=== PATIENT | male | born 1960 | race Caucasian/White ===

== ENCOUNTER 2018-06-04 16:02 | Inpatient (IN) | payer MEDICAID ==
[2018-06-04] MEDS ORDERED: ACETAMINOPHEN 325 MG TAB PO PRN (18:54)
[2018-06-04] MEDS ORDERED: HYDROmorphONE/DILAUDID 1 MG/ML INJ IVP PRN (18:54)
[2018-06-04] MEDS ORDERED: oxyCODONE IR 5 MG TAB PO PRN (18:54)
[2018-06-04] MEDS ORDERED: PROMETHAZINE HCL 25 MG/ML INJ IVP PRN (18:54)
[2018-06-04] MEDS ORDERED: ONDANSETRON 4 MG/2 ML VIAL IVP PRN (18:54)
[2018-06-04] MEDS ORDERED: ONDANSETRON DISINTEGRATING 4 MG TAB PO PRN (18:54)
--- NOTE | 2018-06-04 20:41 | GHP ---
DATE OF ADMISSION: 06/04/2018 CHIEF COMPLAINT: Swelling of eyes. HISTORY: This is a 57-year-old man who presents as a direct admission from his oncologist's office w ith complaints of 1-1/2 years of significant swelling of his eyes. The patient notes that he initial ly thought there was something in his eye and had seen a doctor for that as they were burning, but th is did not improve. Over the last year and a half, he has had ongoing worsening swelling of the eyes to the point where he is no longer able to see at all out of the right eye just simply due to the sw elling pressing his eye downward to where he needs to lean his head back and pull his lid up in order to access the pupil. He states he attempted to be seen by different doctors over the years, but thi s was unable to be truly successful due to issues with insurance. He was finally able to undergo a b iopsy, at which time he was diagnosed with CLL. He is sent over here from Dayday Saha at [facility] for planned initiation of chemotherapy in the morning. The patient also notes a h oarse voice that has been present for the last several months. He denies any issues with trouble swa llowing or breathing. He has not had any issues with drooling. PAST MEDICAL HISTORY: Includes peritonitis, status post ruptured appendix. PAST SURGICAL HISTORY: Includes appendectomy, colostomy with colostomy takedown. FAMILY HISTORY: Father had some sort of immunodeficiency syndrome, which he had frequent infections as a result of and at age 70. SOCIAL HISTORY: Patient is a marijuana user. He denies having history of tobacco use ever. He does have a prior heavy alcohol use history, but is currently essentially sober. He lives independently with his 27-year-old son. REVIEW OF SYSTEMS: 10-point review of systems obtained, negative except as per HPI. HOME MEDICATIONS: Include ibuprofen. ALLERGIES: No known drug allergies. PHYSICAL EXAM: VITAL SIGNS: BP 119/95, heart rate 99, respiratory rate 16, O2 sat 94% on room air, temperature is 36.6. GENERAL APPEARANCE: This is a well-developed, well-nourished man. He is awake and alert. He is in no acute distress. EYES: Significant bilateral proptosis. eye is essentially closed, with pupil located very inferiorly. He is able to retract his lid and see out of that eye, and when he does so, he states his vision is normal, so that is on the . The __ pupil is visible; vision is intact, but again, with significant proptosis. HEENT: Orophary nx is notable for a lesion in the posterior palatal region. There is some fullness appreciated in th e cervical region without distinct masses appreciated. There is no stridor. CARDIOVASCULAR: Regula r rate and rhythm, no MRG. PULMONARY: CTA bilaterally. Normal work of breathing. ABDOMEN: Soft, nontender, nondistended. EXTREMITIES: No clubbing, cyanosis, or edema. SKIN: Warm, dry, well perf used. NEURO/PSYCH: Oriented and appropriate. CLINICAL DATA: Labs reviewed. CBC is completely normal. Chemistry is remarkable only for a BUN of 25, TSH of 6.1. Hep B and C antibodies are negative. HIV is pending. ASSESSMENT AND PLAN: This is a 57-year-old man with newly diagnosed ocular adnexal chronic lymphocyt ic leukemia, here for initiation of chemotherapy. 1. Ocular adnexal chronic lymphocytic leukemia. The patient is being admitted for planned chemother apy with high-dose methylprednisolone as well as rituximab with concerns that deferring treatment may lead to loss of vision and/or airway. At this time, his airway does seem to be protected. His visi on does certainly seem to be imminently in danger. Will further stage with CT chest, abdomen, pelvis . We will provide intravenous fluids overnight in anticipation of initiation of chemotherapy in the morning. 2. Elevated BUN. Patient may be slightly dry. Again, intravenous fluids overnight. 3. Disposition. Inpatient status. Suspect the patient will require greater than a 48-hour stay for administration of high-risk chemotherapy agents, monitoring for tumor lysis syndrome. Patient is new to my care. Old records reviewed, summarized as per HPI and past medical history. Ca re plan reviewed at length with Dr. Saha of [facility]. /[id number]/MODL
[2018-06-04] MEDS: NS 1,000 ML IV SCH (20:50)
[2018-06-04] MEDS ORDERED: IOPAMIDOL (ISOVUE-300) 100 ML BTL ONE (22:15)
[2018-06-04] MEDS: LORazepam 0.5 MG TAB PO PRN (22:54)
[2018-06-05 04:26] LABS: PLATELET COUNT 189 10^3/uL (150-400)
--- NOTE | 2018-06-05 10:24 | PDMN ---
Medical Necessity Medical necessity: [facility] Medical Oncology GR57 y/o w/ ocular adnexal CLL , admit to IP for planned chemo w/ high dose methylprednisolone and rituxin w/ concerns deferring treatment may lead to loss of vision and/or airway. Imminent danger to vision currently. IV fluids for elevated BUN. Inpt status as suspect pt will require >48hr stay for admin of high risk chemo agents and monitoring for tumor lysis syndrome.
--- NOTE | 2018-06-05 14:19 | HOSPPROG ---
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: onc to see today to initiate inpt induction chemotherapy orbital masses: per pt, visual acuity intact is at risk for vision loss it seems anxiety: prn ativan proph: start LMWH dispo: inpt Subjective: case d/w dr dias Objective: Vital Signs Temp Pulse Resp BP Pulse Ox 36.7 C 105 H 18 123/97 H 94 06/05/18 11:38 06/05/18 11:38 06/05/18 11:38 06/05/18 11:38 06/05/18 11:38 Laboratory Results 06/05/18 04:05 06/05/18 04:05 06/04/18 06/05/18 06/06/18 05:59 05:59 05:59 Intake Total 889 Balance 889 - Physical Exam Constitutional: no apparent distress, appears nourished Eyes: anicteric sclera, other (remarkably large orbital masses w significant proptosis. L >R. visual acuity intact) Ears, Nose, Mouth, Throat: moist mucous membranes, hearing normal Cardiovascular: regular rate and rhythym, no murmur, rub, or gallop Respiratory: no respiratory distress, no rales or rhonchi Gastrointestinal: normoactive bowel sounds, soft, non-tender abdomen Genitourinary: no bladder fullness, No pena in urethra Skin: warm, normal color Musculoskeletal: full muscle strength Neurologic: AAOx3 Psychiatric: interacting appropriately
--- NOTE | 2018-06-05 16:31 | ASMTCMCOM ---
CM Note CM Note Notes: Pt's chart reviewed for d/c planning. Pt is a 57 y/o male who presents as a direct admit from his oncologist's office with a diagnosis of CLL. He will begin chemotherapy in the morning. He had experienced increased swelling of his eyes for 1 1/2 years, prior to diagnosis. Pt is single. He is employed by [employer]. CM needs unknown at this time; CM will follow. D/C Plan: TBD Date Signed: 06/05/2018 04:30 PM Electronically Signed By:Miriam Barrios
[2018-06-05] MEDS: SULFAMETHOX/TMP 400/80 MG 1 TAB PO SCH (17:38)
--- NOTE | 2018-06-05 19:12 | GHP ---
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 HISTORY OF PRESENT ILLNESS: The patient is a very pleasant 57-year-old male who was first seen in [facility] office on April [address] Saha. He reported a history of progressive slow periorbital swelling, w hich he thought was due to some type of irritation from the soap. He was uninsured and therefore was delayed in seeking medical followup. He was seen by automotive dismantler, Dr. Toure in early April with a visual acuity of 20/30 in each eye, but had markedly infiltrative orbital masses bilaterally, left greater than right. Biopsy was performed on the right orbital mass on May 08 with pathology rep resenting a B-cell lymphoma with immunophenotype showing mature B-cell, CD 5 positive, CD 20 positive , cyclin D1 negative. This was felt to be consistent with chronic lymphocytic leukemia/small lymphoc ytic lymphoma. Alok denies any fevers, chills, or sweats. He feels his weight is stable. He feels his vision is martha sonable, but he just cannot open his eyelids due to the masses. He also has noted some voice changes . He is admitted for initiation of therapy with rituximab and high-dose methylprednisolone. PAST MEDICAL HISTORY: Unremarkable. PAST SURGICAL HISTORY: Appendectomy with ruptured appy, abdominal sepsis, temporary colostomy and re anastomosis. FAMILY HISTORY: Noncontributory. SOCIAL HISTORY: He is . He works as a environmental programs specialist. He has used alcohol heavily in the past and h e smokes marijuana regularly. REVIEW OF SYSTEMS: 10-point review of systems is negative. PHYSICAL EXAM: GENERAL: He is a chronically ill-appearing male with marked deformity in both orbits . HEENT: Pupils and sclerae are barely visible due to swelling of the eyelids and periorbital regio n. LUNGS: Clear to auscultation. HEART: Regular rate. ABDOMEN: Soft, nontender. He has bilater al shotty cervical adenopathy. LABORATORY DATA: Normal CBC with normal differential, no lymphocytosis, 3+ atypical lymphocytes are noted on the peripheral smear. Beta 2 microglobulin is elevated at 3.6. Metabolic panel is unremark able with LDH of 591 and uric acid of 6.2. IMPRESSION: This is a 57-year-old male with a slowly progressive infiltrative small lymphocytic lymp mahendra process involving primarily the periorbital region. The CT scans of the chest and abdomen show multiple pulmonary nodules with subpleural pulmonary nodules, the largest measuring 19 mm. There is soft tissue nodular infiltration in the subcutaneous tissue over the shoulders bilaterally. Abdomina l pelvic CT shows a 3 cm nodular nonspecific soft tissue mass in the mesentery just below the anterio r abdominal wall with nonspecific nodular soft tissue densities in the subcutaneous fat bilaterally a nd multiple prominent bilateral inguinal nodes with mild splenomegaly and a 3.2 cm nonspecific hypode nse lesion in the right lobe of the liver. The bulk of his disease appears to be in the periorbital region and we will get a CT of that to have as a baseline. This is an unusual presentation of small lymphocytic lymphoma with apparent predilection for soft tis nora infiltration. I suspect the pulmonary nodules and pleural nodules and soft tissue infiltration a ll represent lymphoid infiltrate. If so, we would expect to see a fairly rapid response to the thera py. If some of these areas persist despite a significant response elsewhere, it would be reasonable to re-evaluate for some other underlying process. PLAN: 1. We will get a head CT with IV contrast to have as a baseline. 2. Anticipate starting rituximab and high-dose methylprednisolone tomorrow with rituximab 375 mg/m2 and methylprednisolone 1 g/m2 days 1 through 3. 3. I reviewed potential side effects of the therapy with him and his son. 4. Prophylactic acyclovir and Bactrim have been started. We will also start on allopurinol. Cierra gould, I suspect, given the typical indolent nature of this disease, a significant tumor lysis would be u nlikely. We will continue to follow with you. /[id number]/MODL
[2018-06-05] MEDS ORDERED: GADOBUTROL 10 ML VIAL IVP ONE (20:27)
[2018-06-05] MEDS: ACYCLOVIR 400 MG TAB PO SCH (21:02)
[2018-06-05] MEDS: NS 1,000 ML IV SCH (21:02)
[2018-06-06 05:54] LABS: PLATELET COUNT 189 10^3/uL (150-400)
[2018-06-06] MEDS ORDERED: NS 1,000 ML IV PRN ×2 (09:36→11:27)
[2018-06-06] MEDS: ACYCLOVIR 400 MG TAB PO SCH ×2 (09:49→20:01)
[2018-06-06] MEDS: SULFAMETHOX/TMP 400/80 MG 1 TAB PO SCH (09:49)
[2018-06-06] MEDS: ALLOPURINOL 300 MG TAB PO SCH (09:49)
[2018-06-06] MEDS ORDERED: NS 500 ML IV PRN (11:27)
[2018-06-06] MEDS ORDERED: HYDROCORTISONE 100 MG/2 ML VIAL IVP PRN (11:27)
[2018-06-06] MEDS ORDERED: ACETAMINOPHEN 325 MG TAB PO PRN (11:27)
[2018-06-06] MEDS ORDERED: DEXAMETHASONE 10 MG/ML VIAL IVP PRN (11:27)
[2018-06-06] MEDS ORDERED: MEPERIDINE 25 MG/ML SYR IVP PRN (11:27)
[2018-06-06] MEDS ORDERED: EPINEPHrine 1 MG/ML INJ IM PRN (11:27)
[2018-06-06] MEDS ORDERED: ACETAMINOPHEN 325 MG TAB PO ONE ×2 (11:30)
[2018-06-06] MEDS ORDERED: FAMOTIDINE 20 MG/NACL 50 ML IV SCH (11:30)
[2018-06-06] MEDS ORDERED: ACETAMINOPHEN 325 MG TAB PO SCH (11:30)
[2018-06-06] MEDS ORDERED: diphenhydrAMINE 25 MG CAP PO ONE ×2 (11:30)
[2018-06-06] MEDS: FAMOTIDINE 20 MG/NACL 50 ML IV SCH (11:44)
[2018-06-06] MEDS: methylPREDNISolone SOD SUCC 2 GM in D5W 100 ML IV SCH (12:20)
[2018-06-06] MEDS ORDERED: NS IV ONE (13:30)
[2018-06-06] MEDS ORDERED: RITUXIMAB IV ONE (13:30)
--- NOTE | 2018-06-06 13:51 | HOSPPROG ---
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: - Seen by oncology today who plan to initiate inpt induction chemotherapy today (Rituximab and high-dose Methylprednisolone) - Will monitor for TLS with serial monitoring of electrolytes, uric acid/LDH - Will continue IVF and allopurinol - Brain MRI performed yesterdays showed extensive abnormal enhancing soft tissue in orbits, L>R, with intraconal extension and proptosis - Continue ppx with Acyclovir and Bactrim Orbital masses: per pt, visual acuity intact - At risk for vision loss, treatment of CLL as above anxiety: prn ativan proph: LMWH dispo: Pending clinical course Subjective: Patient reports no complaints this AM. Objective: Vital Signs Temp Pulse Resp BP Pulse Ox 36.6 C 95 16 115/75 92 06/06/18 11:38 06/06/18 11:38 06/06/18 11:38 06/06/18 11:38 06/06/18 11:38 Laboratory Results 06/06/18 05:35 06/06/18 05:35 06/05/18 06/06/18 06/07/18 05:59 05:59 05:59 Intake Total 889 1825 800 Balance 889 1825 800 - Physical Exam Constitutional: no apparent distress Eyes: other (Diffuse enlargement with proptosis b/l) Ears, Nose, Mouth, Throat: moist mucous membranes Cardiovascular: regular rate and rhythym Respiratory: no respiratory distress Gastrointestinal: soft, non-tender abdomen Genitourinary: No pena in urethra Skin: warm Musculoskeletal: full muscle strength Neurologic: AAOx3 Psychiatric: interacting appropriately ICD10 Worksheet Patient Problems: Problems Problem Status Onset CLL (chronic lymphocytic leukemia) Acute
--- NOTE | 2018-06-06 15:45 | ASMTCMCOM ---
CM Note CM Note Notes: Pt starting chemo today through a peripheral IV. He will not need PICC or port per RN. Pt should have no DC needs. Pt approved for a [facility]. Date Signed: 06/06/2018 03:44 PM Electronically Signed By:Flakita Diana LCSW
--- NOTE | 2018-06-06 17:12 | ASMTCMCOM ---
CM Note CM Note Notes: Met with pt in PM to discuss resources. Pt has been approved for [employer]. Pt is and lives with his son so he is candidate for assistance through [email or web address].Also told pt to meet with SW at [facility] to get applications for grants through various foundations. Pt also might qualify for SSDI or SSI so LM for [employer] to meet with or call pt on Saturday. Date Signed: 06/06/2018 04:53 PM Electronically Signed By:Flakita Diana LCSW
--- NOTE | 2018-06-06 17:28 | SOAPPROG ---
SOAP Progress Note Assessment/Plan: A/P: * SLL with marked orbital involvement: beginning Rituxan/Methylpred today while prognostic studies pending. We reviewed infusion reactions with Rituxan and potential for psychiatric side effects of high-dose steroids. d/w Dr. Jacome. - Rituxan today - Methylpred D1-3 - Ativan prn 06/06/18 17:29 Subjective: S: no new concerns. Met with pharmacy. O: VS reviewed. Gen: NAD. HEENT: significant bilateral proptosis. Lymph: shotty cervical LAD. Lungs: CTA. Laboratory Tests 06/06/18 06/06/18 05:35 05:35 WBC 6.92 Hgb 14.1 Plt Count 189 Sodium 139 Potassium 4.4 Chloride 107 Carbon Dioxide 23 BUN 14 Creatinine 0.7 Glucose 103 H Total Bilirubin 1.4 AST 17 ALT 23 Alkaline Phosphatase 68 Lactate Dehydrogenase 511 Total Protein 6.4 Albumin 3.7 Outpatient hepatitis serologies and HIV neg. CTs and MRI reviewed. Objective: Vital Signs Temp Pulse Resp BP Pulse Ox 36.6 C 94 18 134/91 H 92 06/06/18 16:32 06/06/18 16:32 06/06/18 16:32 06/06/18 16:32 06/06/18 16:32 Laboratory Results 06/06/18 05:35 06/06/18 05:35 06/05/18 06/06/18 06/07/18 05:59 05:59 05:59 Intake Total 889 1825 1500 Output Total 550 Balance 889 1825 950 ICD10 Worksheet Patient Problems: Problems Problem Status Onset CLL (chronic lymphocytic leukemia) Acute
[2018-06-06] MEDS: LORazepam 2 MG/ML INJ IVP PRN (19:05)
[2018-06-06] MEDS: NS 1,000 ML IV SCH (20:05)
[2018-06-07] MEDS: LORazepam 2 MG/ML INJ IVP PRN ×2 (03:10→15:18)
[2018-06-07 04:56] LABS: PLATELET COUNT 213 10^3/uL (150-400)
[2018-06-07] MEDS: SULFAMETHOX/TMP 400/80 MG 1 TAB PO SCH (10:00)
[2018-06-07] MEDS: ALLOPURINOL 300 MG TAB PO SCH (10:00)
[2018-06-07] MEDS: ACYCLOVIR 400 MG TAB PO SCH ×2 (10:01→20:55)
[2018-06-07] MEDS: FAMOTIDINE 20 MG/NACL 50 ML IV SCH (10:02)
--- NOTE | 2018-06-07 10:35 | HOSPPROG ---
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: - Oncology following who started inpt induction chemotherapy on 06/06 (Rituximab and high-dose Methylprednisolone) - Will monitor for TLS with serial monitoring of electrolytes, uric acid/LDH - Will continue allopurinol - Brain MRI from 06/05 showed extensive abnormal enhancing soft tissue in orbits, L>R, with intraconal extension and proptosis - Continue ppx with Acyclovir and Bactrim Orbital masses: per pt, visual acuity intact - At risk for vision loss, treatment of CLL as above anxiety: prn ativan proph: LMWH dispo: Pending clinical course, d/c likely after completed of induction chemo on 06/09 Subjective: Patient reports feeling well this morning. He had some clear sinus drainage overnight. Objective: Vital Signs Temp Pulse Resp BP Pulse Ox 36.2 C 118 H 18 118/88 H 93 06/07/18 08:09 06/07/18 08:09 06/07/18 08:09 06/07/18 08:09 06/07/18 08:09 Laboratory Results 06/07/18 04:43 06/07/18 04:43 06/06/18 06/07/18 06/08/18 05:59 05:59 05:59 Intake Total 1825 2810 Output Total 1999 Balance 1825 810 - Physical Exam Constitutional: no apparent distress Eyes: other (Significant propotosis abd periorbital swelling ) Ears, Nose, Mouth, Throat: moist mucous membranes Cardiovascular: regular rate and rhythym Respiratory: no respiratory distress Gastrointestinal: normoactive bowel sounds Genitourinary: no bladder tenderness Skin: warm Musculoskeletal: no muscle tenderness Neurologic: AAOx3 Psychiatric: interacting appropriately Lymph, Heme, Immunologic: No ecchymoses ICD10 Worksheet Patient Problems: Problems Problem Status Onset CLL (chronic lymphocytic leukemia) Acute
[2018-06-07] MEDS: methylPREDNISolone SOD SUCC 2 GM in D5W 100 ML IV SCH (10:48)
[2018-06-07] MEDS ORDERED: D50W 25 GM/50 ML SYR IVP PRN (11:26)
[2018-06-07] MEDS ORDERED: TEMAZEPAM 15 MG CAP PO PRN (11:27)
[2018-06-07] MEDS: INSULIN LISPRO 100 UNIT/ML SC SCH ×3 (13:44→19:31)
[2018-06-07] MEDS: NS 1,000 ML IV SCH (18:37)
--- NOTE | 2018-06-07 19:24 | SOAPPROG ---
SOAP Progress Note Assessment/Plan: Assessment: Patient is a 57 year old male with stage IV SLL (LAD above and below the diaphragm with extranodal involvement in bilateral orbits) #Stage IVAE SLL Normal lymphocyte count, lymph adenopathy above and below the diaphragm. Bilateral orbital adnexal involvement. He is currently day #2 of HDMP and rituximab Plan: -Continue 3 days of HDMP, 1gm/m2 daily for 3 days -Will continue weekly rituximab as an outpatient -Discharge on 1SS bactrim daily, acyclovir 400mg BID, allopurinol 300mg daily -Would discharge after 3rd dose of HDMP 06/07/18 19:18 06/07/18 19:30 Subjective: Patient reports feeling well. He had trouble sleeping after, HDMP however also has trouble sleeping when not smoking weed. He denies fevers, chills or sweats, his voice difficulties have resolved and his adenopathy is improving. His orbital masses are also getting smaller Objective: Vital Signs Temp Pulse Resp BP Pulse Ox 36.3 C 107 H 16 133/88 H 93 06/07/18 15:12 06/07/18 15:12 06/07/18 15:12 06/07/18 15:12 06/07/18 15:12 Laboratory Results 06/07/18 04:43 06/07/18 04:43 06/06/18 06/07/18 06/08/18 05:59 05:59 05:59 Intake Total 1825 2810 900 Output Total 1999 Balance 1825 810 900 - Time Spent With Patient Time Spent With Patient: 20 minutes Physical Exam - Physical Exam General Appearance: alert, no apparent distress EENT: other (opthalmaplegia, bilateral supraorbital masses (smaller in size), no pharyngeal deviation ) Neck: No lymphadenopathy (R), No lymphadenopathy (L) Respiratory: chest non-tender, lungs clear, normal breath sounds Cardiac/Chest: normal peripheral pulses, regular rate, rhythm Abdomen: normal bowel sounds, non-tender, soft, No hepatomegaly, No splenomegaly Skin: normal color, warm/dry Lymphatic: other (scattered subcentimeter inguinal LNs largest 1.5cm on left, shoddy anterior cervical/axillary) Extremities: No pedal edema Neuro/Psych: No abnormal gait, No depressed affect ICD10 Worksheet Patient Problems: Problems Problem Status Onset CLL (chronic lymphocytic leukemia) Acute
[2018-06-07] MEDS: LORazepam 0.5 MG TAB PO PRN (20:55)
[2018-06-08 05:16] LABS: PLATELET COUNT 202 10^3/uL (150-400)
[2018-06-08 08:00] VITALS: BP 102/68
[2018-06-08] MEDS: INSULIN LISPRO 100 UNIT/ML SC SCH (08:17)
[2018-06-08] MEDS: FAMOTIDINE 20 MG/NACL 50 ML IV SCH (08:33)
[2018-06-08] MEDS: ACYCLOVIR 400 MG TAB PO SCH (08:37)
[2018-06-08] MEDS: ALLOPURINOL 300 MG TAB PO SCH (08:37)
[2018-06-08] MEDS: SULFAMETHOX/TMP 400/80 MG 1 TAB PO SCH (08:37)
[2018-06-08] MEDS: methylPREDNISolone SOD SUCC 2 GM in D5W 100 ML IV SCH (08:56)
--- NOTE | 2018-06-08 10:11 | SOAPPROG ---
SOAP Progress Note Assessment/Plan: Assessment: Patient is a 57 year old male with stage IV SLL (LAD above and below the diaphragm with extranodal involvement in bilateral orbits). No ACDS BLOCK 1 OPERATOR disease #Stage IVAE SLL Normal lymphocyte count, lymph adenopathy above and below the diaphragm. Bilateral orbital adnexal involvement. He is currently day #3/3 of HDMP and rituximab Plan: -Will continue weekly rituximab as an outpatient -Would discharge on 1SS bactrim daily, acyclovir 400mg BID, allopurinol 300mg daily -Okay for discharge today Dayday Saha [phone] Subjective: Patient reports feeling well. He slept well with restoril, he denies any fever chills or drenching night sweats, no new concerning lesions Objective: Vital Signs Temp Pulse Resp BP Pulse Ox 36.7 C 98 16 102/68 94 06/08/18 07:59 06/08/18 07:59 06/08/18 07:59 06/08/18 07:59 06/08/18 07:59 Laboratory Results 06/08/18 04:14 06/08/18 04:14 06/07/18 06/08/18 06/09/18 05:59 05:59 05:59 Intake Total 2810 2159 Output Total 2000 Balance 810 2159 Physical Exam - Physical Exam General Appearance: alert, no apparent distress EENT: other (two small nodules ~1cm on left side of waldeneyer's ring, verrucous papule on roof of hard palate (left), exopthalmos, bilateral supraorbital masses continue to decrease in size), No scleral icterus (R), No scleral icterus (L), No pale conjunctiva (R), No pale conjunctiva (L) Neck: lymphadenopathy (L) (1 cm left posterior cervical node ) Respiratory: lungs clear, normal breath sounds, No crackles, No rales Cardiac/Chest: normal peripheral pulses, regular rate, rhythm, No edema, No JVD Abdomen: normal bowel sounds, non-tender, soft, No organomegaly, No distended, No guarding Male Genitalia: deferred Rectal: deferred Back: Normal inspection Skin: warm/dry, No rash Lymphatic: other (left 1 cm posterior cervical, 1cm left axillary, 1 cm left inguinal, otherwise shoddy nodes throughout ) Extremities: normal range of motion, non-tender, normal inspection, normal capillary refill, No pedal edema Neuro/Psych: alert, normal mood/affect, oriented x 3 ICD10 Worksheet Patient Problems: Problems Problem Status Onset CLL (chronic lymphocytic leukemia) Acute
--- NOTE | 2018-06-08 10:26 | PDDCSUM ---
Discharge Summary Discharge Summary: Admission Date: 06/04/2018 Discharge Date: 06/08/2018 Consults: Oncology Followup: Oncology Hospital Course Problem List: 57 yo M w orbital CLL who is admitted for initiation of induction chemotherapy CLL: - Oncology following who started inpt induction chemotherapy on 06/06 (Rituximab and high-dose Methylprednisolone) - Monitored for TLS with serial monitoring of electrolytes, uric acid/LDH - Will hold allopurinol on discharge - Brain MRI from 06/05 showed extensive abnormal enhancing soft tissue in orbits, L>R, with intraconal extension and proptosis - Continue ppx with Acyclovir and Bactrim as an outpatient - Patient will f/u with Oncology for next round of chemotherapy and monitoring Orbital masses: per pt, visual acuity intact - Decreasing with chemo - Remains at risk for vision loss, treatment of CLL as above Time spent on discharge >35 minutes wit >50% of time spent on patient education and counseling
[2018-06-08] MEDS ORDERED: HYDROmorphone HCL 0.5 MG/0.5 ML SYR IVP PRN (11:00)
--- NOTE | 2018-06-08 11:17 | ASDISCHSUM ---
Discharge Information Plan Status:Home with No Needs Medically Cleared to Leave:06/08/2018 Discharge Date:06/08/2018 CM D/C Disposition:Home, Routine, Self-Care ADT D/C Disposition:Home, Routine, Self-Care Projected Discharge Date:06/08/2018 Transportation at D/C:Family Discharge Delay Reason: Follow-Up Date:06/08/2018 Discharge Slot: Final Diagnosis: Placement Information Patient Contact Information Contact Name:MARYBETH Relationship:Friend Address: City:[place] Alternate Phone: [facility]/Zip Code:[place] [address] Email: Financial Information Financial Class:Medicaid Primary Plan Desc:[employer] Primary Plan Number:[id number] Secondary Plan Desc: Secondary Plan Number: Assessment Information [facility] CM Progress Note CM Note CM Note Notes: Pt's chart reviewed for d/c planning. Pt is a 57 y/o male who presents as a direct admit from his oncologist's office with a diagnosis of CLL. He will begin chemotherapy in the morning. He had experienced increased swelling of his eyes for 1 1/2 years, prior to diagnosis. Pt is single. He is employed by [employer]. CM needs unknown at this time; CM will follow. D/C Plan: TBD Date Signed: 06/05/2018 04:30 PM Electronically Signed By:Miriam Barrios [facility] CM Progress Note CM Note CM Note Notes: Pt starting chemo today through a peripheral IV. He will not need PICC or port per RN. Pt should have no DC needs. [facility] Date Signed: 06/06/2018 03:44 PM Electronically Signed By:Flakita Diana LCSW [facility] CM Progress Note CM Note CM Note Notes: Met with pt in PM to discuss resources. Pt has been approved for [employer]. Pt is and lives with his son so he is candidate for assistance through [employer].Also told pt to meet with SW at [facility] to get applications for grants through various foundations. Pt also might qualify for SSDI or SSI so LM for [employer] to meet with or call pt on Saturday. Date Signed: 06/06/2018 04:53 PM Electronically Signed By:Flakita Diana LCSW Intervention Information
--- NOTE | 2018-06-08 11:18 | ASMTLACE ---
[facility] Length of stay for Answers: 3 days current admission Acuity / Level of Answers: Yes Care: Did the patient have an inpatient admission? Comorbidities - select Answers: Any tumor (including all that apply lymphoma or leukemia) # of Emergency department Answers: 0 visits in the last 6 months Score: 8 Date Signed: 06/08/2018 11:17 AM Electronically Signed By:Annetta Hernandez RN
--- NOTE | 2018-06-08 11:20 | ASMTCMCOM ---
CM Note CM Note Notes: Medically cleared for dc to home with family. No Home Health needs at this time. [employer] funding approved, will f/u tomorrow on mailing funds. Patient and I discussed following up with social work nurse at [facility] for other avenues of support with applications for grants that may be available. Plan: Home independently. Date Signed: 06/08/2018 11:20 AM Electronically Signed By:Annetta Hernandez RN
== END 2018-06-08 11:37 | disposition home or self-care (01) | DRG 696 ==
LOC: F1N 18:11 → UNDODISIN 06-05 14:41
PROVIDERS: ADMIT Internal Medicine; ATTEND Internal Medicine
PROC: 3E0330M Introduction of Antineoplastic, Monoclonal Antibody, into Peripheral Vein, Percutaneous Approach (ICD-10-PCS; principal; 2018-06-06)
DX: Z51.11 Encounter for antineoplastic chemotherapy (principal); C91.10 Chronic lymphocytic leukemia of B-cell type not having achieved remission
CPT/HCPCS: 82232-90; 84480-90; 97165-GO; A9585; G0472; J1200; J1815; J2060; J2175; J2930; J9310; Q9967

== ENCOUNTER 2019-03-02 12:40 | Inpatient (IN) | payer MEDICAID | END 2019-03-07 14:42 | disposition home or self-care (01) | LOC: F1N 17:56 ==